=== PATIENT | female | born 1985 | race Caucasian/White ===

== ENCOUNTER → 2019-07-12 | Outpatient (CLI) | payer OTHER ==
--- NOTE | 2019-07-12 15:16 | Diagnostic Imaging Report ---
EXAMINATION: KNEE LEFT THREE VIEWS INDICATION: Knee pain, trauma COMPARISON: None FINDINGS: No acute fracture or dislocation. Alignment is anatomic. No substantial joint effusion. No degenerative changes. Soft tissues appear unremarkable. IMPRESSION: No acute osseous injury. Signed by: Katty Walker MD on 07/12/2019 3:12 PM
== END ==
LOC: RAD 13:55
PROVIDERS: ATTEND Family Medicine
DX: M25.562 Pain in left knee (principal)

== ENCOUNTER 2020-10-14 05:05 | Inpatient (IN) | payer OTHER ==
[~2020-10-14] VITALS: Ht 157.5 cm; Wt 78.9 kg
[2020-10-14] VITALS (7 sets, daily range): BP systolic 105–130; BP diastolic 72–90
[2020-10-14] MEDS ORDERED: KETOROLAC TROMETHAMINE 30 MG/ML VIAL IV STA (05:27)
[2020-10-14] MEDS ORDERED: KETOROLAC TROMETHAMINE 30 MG/ML VIAL ONE (06:07)
[2020-10-14] MEDS ORDERED: MORPHINE SULFATE INJ 4 MG/ML INJ 1ML IV STA (06:51)
[2020-10-14] MEDS ORDERED: ASPIRIN 325 MG TAB PO ONE (07:00)
[2020-10-14] MEDS ORDERED: IOPAMIDOL 370 MG/ML 200 ML INFUS..BTL INJ ONE (07:12)
[2020-10-14] MEDS ORDERED: SODIUM CHLORIDE 0.9% 50ML 50 ML ONE (07:12)
[2020-10-14] MEDS ORDERED: ASPIRIN 81 MG CHEW TAB PO ONE (07:30)
[2020-10-14] MEDS ORDERED: MORPHINE SULFATE INJ 4 MG/ML INJ 1ML IV PRN (07:30)
[2020-10-14] MEDS ORDERED: ONDANSETRON HCL INJ 2MG/ML 2ML 2 MG/ML VIAL IV PRN (07:30)
[2020-10-14 10:06] LABS: CHOL/HDL RATIO 3.6 (3.0-3.6)
[2020-10-14 10:23] LABS: CREATINE KINASE MB 31.5 ng/mL (0-5.0)
[2020-10-14] MEDS: ASPIRIN 81 MG ENTERIC COATED PO SCH (10:36)
[2020-10-14] MEDS: SODIUM CHLORIDE 0.9% 1000ML 1,000 ML IV SCH (10:59)
[2020-10-14] MEDS: ENOXAPARIN SOD INJ 40 MG/0.4 ML SYR SC SCH ×2 (10:59→21:16)
[2020-10-14] MEDS ORDERED: REMDESIVIR 200MG/NS 100ML 200 MG in SODIUM CHLORIDE 0.9% 100 ML 100 ML IV ONE (16:00)
[2020-10-14] MEDS: CEFTRIAXONE 1 GM in SODIUM CHLORIDE 0.9% 50ML 50 ML IV SCH (16:06)
[2020-10-14] MEDS: DEXAMETHASONE SOD PHOS 10 MG/1 ML VIAL IV SCH (16:06)
[2020-10-14 17:58] LABS: CREATINE KINASE MB 22.7 ng/mL (0-5.0)
[2020-10-14] MEDS: NAPROXEN 250 MG TAB PO SCH (21:16)
[2020-10-14] MEDS ORDERED: PREDNISONE2.5 MG PO (23:30)
[2020-10-14] MEDS ORDERED: UNITHROID88 MCG PO (23:30)
[2020-10-14] MEDS ORDERED: LIOTHYRONINE SO5 MCG PO (23:30)
[2020-10-14] MEDS ORDERED: vitamin d PO (23:30)
[2020-10-14] MEDS ORDERED: METFORMIN HCL500 M1 PO (23:30)
[2020-10-15] VITALS (7 sets, daily range): BP systolic 97–127; BP diastolic 62–84
[2020-10-15 06:17] LABS: BASOPHILS % 0.3 % (0.0-1.0); EOSINOPHILS % 0.1 % (0.0-6.0); HEMATOCRIT 37.5 % (34.2-44.1); HEMOGLOBIN 11.7 g/dL (12.0-16.0); LYMPHOCYTES # (AUTO) 1.8 (1.0-3.2); LYMPHOCYTES % 14.9 % (18.0-39.1); MEAN CORPUSCULAR HEMOGLOBIN 29.1 pg (28-32); MEAN CORPUSCULAR HGB CONC 31.2 g/dL (31-35); MEAN CORPUSCULAR VOLUME 93.3 fL (81-99); MONOCYTES # (AUTO) 0.6 (0.2-0.8); MONOCYTES % 4.9 % (4.4-11.3); NEUTROPHILS # (AUTO) 9.2 (2.1-6.9); NEUTROPHILS % 78.8 % (38.7-80.0); PLATELET COUNT 397 x10e3/uL (140-360); RED BLOOD COUNT 4.02 x10e6/uL (3.6-5.1); RED CELL DISTRIBUTION WIDTH 12.7 % (11.7-14.4)
[2020-10-15] MEDS: SODIUM CHLORIDE 0.9% 1000ML 1,000 ML IV SCH (06:35)
[2020-10-15 06:36] LABS: ALBUMIN 2.8 g/dL (3.5-5.0); ALBUMIN/GLOBULIN RATIO 0.8 (0.8-2.0); ANION GAP 15.4 mmol/L (8-16); CALCIUM 8.8 mg/dL (8.4-10.2); CREATININE, SERUM 0.65 mg/dL (0.57-1.11); POTASSIUM 4.4 mmol/L (3.5-5.1)
[2020-10-15 06:43] LABS: CREATINE KINASE MB 11.2 ng/mL (0-5.0)
[2020-10-15] MEDS: DEXAMETHASONE SOD PHOS 10 MG/1 ML VIAL IV SCH (09:46)
[2020-10-15] MEDS: CEFTRIAXONE 1 GM in SODIUM CHLORIDE 0.9% 50ML 50 ML IV SCH (09:46)
[2020-10-15] MEDS: NAPROXEN 250 MG TAB PO SCH ×2 (09:46→17:14)
[2020-10-15] MEDS: ENOXAPARIN SOD INJ 40 MG/0.4 ML SYR SC SCH ×2 (09:47→21:55)
[2020-10-15] MEDS ORDERED: REMDESIVIR 100MG/NS 100ML 100 MG in SODIUM CHLORIDE 0.9% 100 ML 100 ML IV SCH (15:30)
[2020-10-15] MEDS: COLCHICINE 0.6 MG TAB PO SCH (17:14)
[2020-10-16] VITALS: BP 116/77
[2020-10-16 04:00] VITALS: BP 121/76
[2020-10-16 06:24] LABS: BASOPHILS % 0.3 % (0.0-1.0); EOSINOPHILS # (AUTO) 0.1 (0.0-0.4); EOSINOPHILS % 0.5 % (0.0-6.0); HEMATOCRIT 38.5 % (34.2-44.1); HEMOGLOBIN 12.2 g/dL (12.0-16.0); LYMPHOCYTES % 24.8 % (18.0-39.1); MEAN CORPUSCULAR HEMOGLOBIN 29.5 pg (28-32); MEAN CORPUSCULAR HGB CONC 31.7 g/dL (31-35); MEAN CORPUSCULAR VOLUME 93.2 fL (81-99); MONOCYTES # (AUTO) 0.9 (0.2-0.8); NEUTROPHILS % 65.8 % (38.7-80.0); PLATELET COUNT 422 x10e3/uL (140-360); RED BLOOD COUNT 4.13 x10e6/uL (3.6-5.1); RED CELL DISTRIBUTION WIDTH 12.7 % (11.7-14.4)
[2020-10-16 06:42] LABS: ALBUMIN 2.9 g/dL (3.5-5.0); ALBUMIN/GLOBULIN RATIO 0.8 (0.8-2.0); ANION GAP 16.1 mmol/L (8-16); CALCIUM 8.5 mg/dL (8.4-10.2); CREATININE, SERUM 0.72 mg/dL (0.57-1.11); POTASSIUM 4.1 mmol/L (3.5-5.1)
[2020-10-16 07:20] VITALS: BP 126/81
[2020-10-16 08:11] VITALS: BP 126/81
[2020-10-16] MEDS: CEFTRIAXONE 1 GM in SODIUM CHLORIDE 0.9% 50ML 50 ML IV SCH (09:27)
[2020-10-16] MEDS: ENOXAPARIN SOD INJ 40 MG/0.4 ML SYR SC SCH (09:28)
[2020-10-16] MEDS: ASPIRIN 81 MG ENTERIC COATED PO SCH (09:28)
[2020-10-16] MEDS: COLCHICINE 0.6 MG TAB PO SCH (09:28)
[2020-10-16] MEDS: NAPROXEN 250 MG TAB PO SCH (09:28)
[2020-10-16 11:18] VITALS: BP 124/80
[2020-10-16] MEDS ORDERED: COLCHICINE0.6 M1 PO (11:50)
[2020-10-16] MEDS ORDERED: ONDANSETRON HCL 4 MG ORAL DISINTEGRATING TAB PO PRN (12:15)
== END 2020-10-16 12:56 | disposition home or self-care (01) | DRG 177 ==
LOC: FSED 05:26 → ERHOLD 07:19 → MED/SURG3 08:35
PROVIDERS: ADMIT Family Medicine; ATTEND Family Medicine
PROC: 8E0ZXY6 Isolation (ICD-10-PCS; principal; 2020-10-14)
PROC: XW033E5 Introduction of Remdesivir Anti-infective into Peripheral Vein, Percutaneous Approach, New Technology Group 5 (ICD-10-PCS; 2020-10-14)
DX: U07.1 COVID-19 (principal); J12.82 Pneumonia due to coronavirus disease 2019; I30.8 Other forms of acute pericarditis; E66.9 Obesity, unspecified; Z68.31 Body mass index [BMI] 31.0-31.9, adult
CPT/HCPCS: 36415; 71046; 71260; 80048; 80053; 80061; 81025; 82550; 82553; 82948; 83880; 84484; 85025; 85379; 93005; 93306; 96374; 99284; J0456; J0696; J1100; J1650; J1885; J2270; J7030; J7050; Q9967; U0002